=== PATIENT | female | born 1935 | race Caucasian/White ===

== ENCOUNTER 2022-01-09 13:52 | Outpatient (CLI) | payer MEDICARE, BC, SELFPAY | END 2022-01-09 13:53 | disposition home or self-care (01) | LOC: AMB 01-30 11:40 | PROVIDERS: PCP Family Medicine; Visit Provider Family Medicine | DX: N93.9 Abnormal uterine and vaginal bleeding, unspecified (principal) | CPT/HCPCS: A0425; A0427; A0428 ==

== ENCOUNTER 2022-01-09 14:31 | Emergency (ER) | payer MEDICARE, BC, SELFPAY ==
[2022-01-09] VITALS (8 sets, daily range): BP systolic 121–202; BP diastolic 62–93; PULSE 75–91; RESP 18–24; TEMP 36.5; O2SAT 94–98
--- NOTE | 2022-01-09 15:40 | CRLHL7_ITS ---
For Patients: As a result of the Century Cures Act, medical imaging exams and procedure reports are released immediately into your electronic medical record. You may view this report before your referring provider. If you have questions, please contact your health care provider. INDICATION: Bleeding. History of colon cancer. TECHNIQUE: CT abdomen and pelvis without contrast. COMPARISON: 10/26/2015. 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 Liver: Normal in size and attenuation. No suspicious masses. Gallbladder and bile ducts: No stones or inflammation. No biliary dilatation. Pancreas: Unremarkable. No mass or inflammation. Spleen: Normal in size. No masses. Adrenal glands: Normal in size. No nodules. Kidneys: Normal in size. No suspicious masses, stones, or hydronephrosis. GI tract: Unremarkable. Normal in caliber. No sign of mass or inflammation. Vasculature: Diffuse aortic atherosclerosis without aneurysm. Lymph nodes: No lymphadenopathy. Peritoneum/Abdominal Wall: Unremarkable. No sign of mass or infiltration. No free air or significant free fluid. Pelvic organs: Unremarkable. No pelvic masses. Bones: Unremarkable for age. No suspicious bone lesion. IMPRESSION: No changes from the prior exam. GI tract appears unremarkable. No acute or specific finding to explain bleeding. Please note that all CT scans at this facility use dose modulation, iterative reconstruction, and/or weight-based dosing when appropriate to reduce radiation dose to as low as reasonably achievable. Dictated by Farhan Dejesus MD @ 01/09/2022 5:32:25 PM (Electronically Signed)
--- NOTE | 2022-01-09 15:43 | ED_ITS ---
HPI - General Adult General Time Seen by Provider: 15:43 Date Seen: 01/09/22 Chief complaint: Unspecified Complaint, Adult Stated complaint: Low hemoglobin Time Seen by Provider: 01/09/22 14:47 Source: patient, family (Daughter Silvana here, spoke with Ros on phone), EMS and RN notes reviewed Mode of arrival: EMS Limitations: altered mental status (Patient has dementia) History of Present Illness HPI narrative: This 86-year-old female is brought in today at request of her daughters. She resides at the [facility]. She has underlying dementia. She has been having increased aggression and confusion, sleeping more and seeming more dazed. For a while now she has had some vaginal bleeding but has gotten heavier with bleeding and clots. The given prior her options of further testing but daughters note that whenever she has taken out of the [facility] it is quite stressful for her. They noted that her bleeding and picked up and was increasingly agitated, supposedly a medical provider was out to see here today in her hip hemoglobin came back critically low, I believe it was reported to be 6.9 per EMS. They were given the option of holding her aspirin and see what happens over few days or having her brought in for blood transfusion. I discussed with both daughters that if she is going to have ongoing active bleeding then a blood transfusion unfortunately is only a temporizing option. Unfortunately taking a blood transfusion as a temporizing option is using a critical Resource. I am certainly not seen that she should not have 1 but I t hink we need to think this through carefully. The believe she has had a hysterectomy in maybe a tubal ligation but they are unsure. They do know she has had a history of colon cancer that was 15-20 years ago that was caught reportedly early. Patient is unable to give us any of her history. When asked her if she has any pain anywhere she laughs and states everywhere but when asked again she states she is not hurting. Review of Systems Status of ROS: Reports: unobtainable due to mental status (Has advanced ankush ia) Exam Const: Vital Signs, click to edit/add: Vital Signs - 24 hr 01/09/22 14:47 Temperature 97.7 F Pulse Rate [Right Pulse Oximeter] 75 Respiratory Rate 18 Blood Pressure [Ri ght Upper Arm] 149/62 H Pulse Oximetry 94 Documenting provider has reviewed patient's vital signs: yes Common normals: no apparent distress, no limitations, alert and well nourished General appearance: cooperative and comfortable HENMT: Common normals: normocephalic, head/scalp atraumatic and hearing grossly normal bilaterally Head and scalp: normocephalic and atraumatic Eye: Common normals: PERRL, EOMs intact bilaterally, conjunctivae normal and no scleral icterus Conjunctiva: conjunctiva(e) normal Pupil: PERRL Neck & C-Spine: Common normals: full ROM, no lymphadenopathy, supple, no meningeal signs, no JVD and thyroid normal Thyroid: thyroid normal Chest: Common normals: inspection of chest normal Resp: Common normals: normal respiratory effort, no retractions, no use of accessory muscles and clear to auscultation bilaterally Auscultation: clear to auscultation bilaterally Cardio: Common normals: no JVD, regular rate, regular rhythm, S1 normal heart sound, S2 normal heart sound, no gallops, no clicks and no murmurs Rate: regular rate Rhythm: regular rhythm Heart sounds: S1 normal and S2 normal GI: Common normals: Normal to inspection, nondistended, normoactive bowel sounds present, soft to palpation, non-tender, no hepatosplenomegaly and no masses Palpation: soft and no hepatosplenomegaly : Other: Unfortunately at this time, patient is in the hallway and I cannot examine her perineum. We have high-volume, high acuity and do not have a room to place this patient as of yet Neuro: Sensorium/orientation: alert Meningeal signs: no meningeal signs Course Course Hospital Course: Have had a nice discussion with the daughters, will proceed with plain noncontrast imaging of her CT and pelvis to see if we can define exactly what is happening intra-abdominally or in the pelvic area to cause bleeding. We do not even know if she has had a hysterectomy, confounding the picture here. I cannot evaluate this patient in the hallway in will need to await her to have a room for further visualization of her perineum. We will do blood work, do a type and screen just to see if she has any antibodies. Daughters and I at this point are holding off on transfusion and will discuss this further once we have the imaging and lab results back. Reevaluation(s) Reevaluation #1: Patient was finally moved into a room. Did look at her perineum. I see no evidence of any bleeding, introitus the vagina is dry. She is not tolerating much as far as examination. I did not do a bimanual examination given her dementia. No evidence of any bleeding from the rectal area. Urethra looks dry. Have reviewed this with her daughter and we will await the imaging and lab results. Her hemoglobin here is 7.1. Will make further decisions based on other pending test. Time: 17:23 Reevaluation #2: Have spoken with Ros and Silvana regarding the normal CT, no evidence to support a definitive pathology. We have not decipher where she is bleeding from here, we had a difficult time getting her to urinate but she finally did go on a bed side commode. There was some mucousy blood tinged material within the urine but still could not decipher if this was vaginal, my presumption it probably was. The daughter seem to be quite positive that the nursing staff really feels like it is coming vaginally. The understand the difficulty with trying to get a pelvic exam on her. I could barely look at her perineum. They feel that that would not be necessary. Unfortunately there has been discrepancy in her blood typing here and will have to be sent to [place]. Thus we would not have any blood ready for her until tomorrow. Daughters wondered if she could just stay overnight but reviewed with them that she really is stable and we would not be doing anything. That makes hospitalization not paid for by Medicare. They understand. We had a long discussion regarding this. They feel that her mom's quality of life is minimal and that she wanted comfort cares only. If they are observing her wishes, then I think transfusing her really is to no benefit. It might give her a little stabilization in a bit more time but eventually she will likely bleed back down again. They are not interested in further evaluation of her bleeding at this time nor transfusion. They do need to check with their brother though to make sure he is in support of this. I discussed initiating hospice which they would like to do. They will get back to me once they have contacted their brother. Time: 18:52 Vital Signs Vital signs: Initial Vital Signs Temperature 97.7 F 01/09/22 14:47 Temperature Source Temporal Artery Scan 01/09/22 14:47 Pulse Rate 75 01/09/22 14:47 Respiratory Rate 18 01/09/22 14:47 Blood Pressure 149/62 H 01/09/22 14:47 Blood Pressure Mean 91 01/09/22 14:47 Blood Pressure Position Sitting 01/09/22 14:47 Pulse Oximetry 94 01/09/22 14:47 Oxygen Delivery Method 01/09/22 14:47 Vital Signs Temperature 97.7 F 01/09/22 14:47 Pulse Rate 75 01/09/22 14:47 Respiratory Rate 18 01/09/22 14:47 Blood Pressure 149/62 H 01/09/22 14:47 Pulse Oximetry 94 01/09/22 14:47 Temperature 97.7 F 01/09/22 14:47 Pulse Rate 75 01/09/22 14:47 Respiratory Rate 18 01/09/22 14:47 Blood Pressure 149/62 H 01/09/22 14:47 Pulse Oximetry 94 01/09/22 14:47 Medical Decision Making Lab Data Labs: Lab Results 01/09/22 01/09/22 Range/Units 01:09 16:05 WBC 9.62 (4.50-11.00) K/uL RBC 3.24 L (4.00-5.20) m/uL Hgb 7.1 L* (12.0-16.0) gm/dL Hct 24.8 L (33.0-51.0) % MCV 77 L (80-100) fL MCH 22 L (26-34) pg MCHC 29 L (32-36) gm/dL RDW Coeff of Pat 17.7 H (11.5-15.5) % Plt Count 309 (140-440) K/uL Neut % (Auto) 61.0 (42.0-72.0) % Lymph % (Auto) 21.8 (20-44) % [place] % (Auto) 11.7 H (0.0-11.0) % Eos % (Auto) 5.1 (0.0-7.0) % Baso % (Auto) 0.2 (0.0-3.0) % Neut # (Auto) 5.86 (1.7-7.0) K/uL Lymph # (Auto) 2.10 (0.90-2.90) K/uL [place] # (Auto) 1.10 H (0.00-0.90) K/UL Eos # (Auto) 0.49 (0.00-0.50) K/uL Baso # (Auto) 0.02 (0.00-0.30) K/uL Abs Immat Gran (auto) 0.02 (0.00-0.30) K/uL Sodium 134 L (135-149) mmol/L Potassium 4.3 (3.6-5.1) mmol/L Chloride 101 (96-114) mmol/L Carbon Dioxide 26 (20-32) mmol/L BUN 13 (7-30) mg/dL Creatinine 0.8 (0.5-1.5) mg/dL Estimated GFR 72 ml/min Glucose 106 (60-115) mg/dL Calcium 8.6 (8.4-10.6) mg/dL Total Bilirubin 0.4 (0.1-1.5) mg/dL AST 31 (12-35) U/L ALT 12 (4-35) U/L Alkaline Phosphatase 104 (40-150) U/L Total Protein 6.2 (6.0-8.3) g/dL Albumin 3.8 (3.3-5.0) g/dL Imaging Data CT Chest/Ab/Pelvis: Attestation: I have reviewed the pertinent imaging results. Radiologist's impression: Patient: KIET PALMER Facility:?[facility] Patient ID:?[id number] Site Patient ID:?[id number]. Site :?[id number] Study:?CT Abdomen/Pelvis w/o Contrast-01/09/2022 4:54:18 PM Ordering Physician:Mikye Chao Final Report: INDICATION: Bleeding. History of colon cancer. TECHNIQUE: CT abdomen and pelvis without contrast. COMPARISON: 10/26/2015. 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 Liver: Normal in size and attenuation. No suspicious masses. Gallbladder and bile ducts: No stones or inflammation. No biliary dilatation. Pancreas: Unremarkable. No mass or inflammation. Spleen: Normal in size. No masses. Adrenal glands: Normal in size. No nodules. Kidneys: Normal in size. No suspicious masses, stones, or hydronephrosis. GI tract: Unremarkable. Normal in caliber. No sign of mass or inflammation. Vasculature: Diffuse aortic atherosclerosis without aneurysm. Lymph nodes: No lymphadenopathy. Peritoneum/Abdominal Wall: Unremarkable. No sign of mass or infiltration. No free air or significant free fluid. Pelvic organs: Unremarkable. No pelvic masses. Bones: Unremarkable for age. No suspicious bone lesion. IMPRESSION: No changes from the prior exam. GI tract appears unremarkable. No acute or specific finding to explain bleeding. Please note that all CT scans at this facility use dose modulation, iterative reconstruction, and/or weight-based dosing when appropriate to reduce radiation dose to as low as reasonably achievable. Dictated by Farhan Dejesus MD @ 01/09/2022 5:32:25 PM (Electronic Signature) Critical Care Time Critical Care Time Critical Care Time: No Discharge Plan Discharge Clinical Impression: Anemia, Dementia, Bleeding Patient Disposition: Home w/ Parent or Adult Condition: Unchanged Additional Instructions: Recommend initiation of hospice. Do not recommend transfusion of blood when it is not ultimately going to change her outcome. Transfusing blood may buy her a bit more time but as we have discussed is not going to change her dementia status. Work with the half-way to have hospice consult initiated, I have written an order. Activity Level: Activity as Tolerated Follow Up/Referrals: Jamie Ragland DO [Primary Care Provider] - Stand Alone Forms: [employer] Info Instructions
[2022-01-09 16:23] LABS: Basophils Absolute Auto 0.02 K/uL (0.00-0.30); Basophils Percent Auto 0.2 % (0.0-3.0); Eosinophils Absolute Auto 0.49 K/uL (0.00-0.50); Eosinophils Percent Auto 5.1 % (0.0-7.0); Hematocrit 24.8 % (33.0-51.0); Immature Granulocytes Abs Auto 0.02 K/uL (0.00-0.30); Lymphocytes Percent Auto 21.8 % (20-44); Mean Corpuscular HGB Conc 29 gm/dL (32-36); Mean Corpuscular Hemoglobin 22 pg (26-34); Mean Corpuscular Volume 77 fL (80-100); Monocytes Percent Auto 11.7 % (0.0-11.0); Neutrophils Absolute Auto 5.86 K/uL (1.7-7.0); Platelet Count* 309 K/uL (140-440); RDW Coefficient of Variation % 17.7 % (11.5-15.5); Red Blood Count 3.24 m/uL (4.00-5.20); White Blood Count* 9.62 K/uL (4.50-11.00)
[2022-01-09 16:26] LABS: Hemoglobin* 7.1 gm/dL (12.0-16.0); Slide Review Reflex No
[2022-01-09 16:45] LABS: Albumin* 3.8 g/dL (3.3-5.0); Chloride* 101 mmol/L (96-114); Potassium* 4.3 mmol/L (3.6-5.1); Sodium* 134 mmol/L (135-149)
[2022-01-09 16:47] LABS: Creatinine* 0.8 mg/dL (0.5-1.5); Estimated Glomerular Filt Rate 72 ml/min
[2022-01-09 16:48] LABS: Alanine Aminotransferase* 12 U/L (4-35); Alkaline Phosphatase* 104 U/L (40-150); Aspartate Amino Transferase* 31 U/L (12-35); Bilirubin Total* 0.4 mg/dL (0.1-1.5); Blood Urea Nitrogen* 13 mg/dL (7-30); Calcium* 8.6 mg/dL (8.4-10.6); Carbon Dioxide* 26 mmol/L (20-32); Glucose* 106 mg/dL (60-115); Total Protein* 6.2 g/dL (6.0-8.3)
--- NOTE | 2022-01-09 19:00 | ED.NURSE ---
Patient becoming more restless. Patient assisted to cot via heavy two-assist with use of gait belt, non-slip shoes. Staff having to completely lift patient from cot to commode and back. 150CC cloudy, straw colored urine with some floating red discharge. MD aware, possible contamination from vaginal bleeding.
--- NOTE | 2022-01-09 19:15 | ED.NURSE ---
[facility], aware of patient's visit and recommendations. No questions/concerns. Would like a call when patient is en route back to facility.
[2022-01-09] MEDS: QUETIAPINE 25 MG TABLET PO (19:36)
--- NOTE | 2022-01-09 20:06 | ED.NURSE ---
[facility] aware patient is en route back of facility.
--- NOTE | 2022-01-31 23:49 | ED.NURSE ---
accessed chart for [facility] form information.
== END 2022-01-09 20:00 | disposition home or self-care (01) ==
PROVIDERS: Emergency Provider Family Medicine; PCP Family Medicine
DX: D64.9 Anemia, unspecified (principal); F03.90 Unspecified dementia, unspecified severity, without behavioral disturbance, psychotic disturbance, mood disturbance, and anxiety; N93.9 Abnormal uterine and vaginal bleeding, unspecified
CPT/HCPCS: 36415; 74176; 80053; 85025; 86850; 86900; 86901; 99284; A9270

== ENCOUNTER 2022-01-09 20:01 | Outpatient (CLI) | payer MEDICARE, BC, SELFPAY | END 2022-01-09 20:02 | disposition home or self-care (01) | LOC: AMB 01-30 14:45 | PROVIDERS: PCP Family Medicine; Visit Provider Emergency Medicine | DX: F03.90 Unspecified dementia, unspecified severity, without behavioral disturbance, psychotic disturbance, mood disturbance, and anxiety (principal) | CPT/HCPCS: A0425; A0428 ==

== ENCOUNTER 2022-02-10 21:31 | Emergency (ER) | payer MEDICARE, BC, SELFPAY ==
[2022-02-10 21:35] VITALS: BP 142/70; PULSE 73; RESP 24; TEMP 36.4; O2SAT 96
--- NOTE | 2022-02-10 22:17 | CRLHL7_ITS ---
For Patients: As a result of the Century Cures Act, medical imaging exams and procedure reports are released immediately into your electronic medical record. You may view this report before your referring provider. If you have questions, please contact your health care provider. INDICATION: Unwitnessed fall. COMPARISON: CT of the head from 10/11/2017 TECHNIQUE: CT examination of the head was performed with 3 mm thick axial and 2 mm thick coronal and sagittal sections without intravenous contrast. Images were obtained from the vertex of the skull through the skull base, and I examined the images with the brain and bone windows. Please note that all CT scans at this facility use dose modulation, iterative reconstruction, and/or weight-based dosing when appropriate to reduce radiation dose to as low as reasonably achievable. FINDINGS: There is new moderate left frontal scalp swelling with no sign of fracture of the underlying calvarium or injury to the underlying brain. There is no change in prominent encephalomalacia of the inferior right frontal lobe and mild encephalomalacia of the inferior aspect of the posterior left frontal lobe, findings consistent with old contusions. Again seen is focal encephalomalacia of the posterior medial left occipital lobe associated with moderate ex vacuo dilatation of the left occipital horn. 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 There is no change in prominent dilatation of the ventricles and sulci representing prominent, age-appropriate atrophy. There is no change in mild periventricular hypodensity representing mild, age-appropriate small-vessel ischemic change. There is stable appearance of a small, old lacunar infarct in the anterior right external capsule and hypodensity in the posterior limb of the right internal capsule from additional lacunar infarction. There is no sign of mass lesion, mass effect, hemorrhage, or edema. The visualized portions of the orbits are normal in appearance with stable changes of cataract surgery. The visualized paranasal sinuses and mastoids are clear. The osseous structures are normal in their appearance with no sign of abnormality in the skull base or calvarium. IMPRESSION: New moderate left frontal scalp swelling. No sign of fracture of the underlying calvarium or injury to the underlying brain. No sign of closed head injury. No sign of acute injury to the brain. Stable old large right and small left inferior frontal contusions. 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 Stable severe atrophy and mild small vessel ischemic change consistent with the patient`s age. Please note that all CT scans at this facility use dose modulation, iterative reconstruction, and/or weight-based dosing when appropriate to reduce radiation dose to as low as reasonably achievable. Dictated by Woody Jefferson MD @ 02/10/2022 11:21:56 PM (Electronically Signed)
--- NOTE | 2022-02-10 22:17 | CRLHL7_ITS ---
For Patients: As a result of the Century Cures Act, medical imaging exams and procedure reports are released immediately into your electronic medical record. You may view this report before your referring provider. If you have questions, please contact your health care provider. INDICATION: Unwitnessed fall. COMPARISON: CT of the cervical spine from 11/30/2016 TECHNIQUE: CT examination of the cervical spine is performed without contrast using spiral technique. 1.5 mm thick axial, sagittal and coronal reconstructions were made. Please note that all CT scans at this facility use dose modulation, iterative reconstruction, and/or weight-based dosing when appropriate to reduce radiation dose to as low as reasonably achievable. FINDINGS: : There is no change in minimal anterior subluxation of C3 on C4 and of C4 on C5 which are probably degenerative, associated with moderate bilateral facet arthropathy. The discs at these levels are normal in height. Again seen is minimal anterior subluxation of C7 on T1 which is probably also degenerative, associated with mild left facet arthropathy. The C7-T1 disc is normal in height. There is no sign of fracture of the cervical vertebral bodies or posterior elements. There is no sign of prevertebral soft tissue swelling. There is prominent C6-7 and C7-T1 disc degenerative disease, unchanged from the previous study. Again seen is mild diffuse disc bulging and posterior osteophytic ridging at see 5 6 more prominent laterally towards the right. Again seen is mild diffuse disc bulging and posterior osteophytic ridging at C6-7. There continues to be severe right greater than left C5-6 foraminal stenosis from uncovertebral joint hypertrophy. There is no change in moderate C6-7 foraminal stenosis from uncovertebral joint hypertrophy. 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 The airway structures are normal in appearance. Again seen is prominent bilateral carotid bifurcation calcification. The visualized skull base is normal in appearance. The visualized inferior brain is normal in appearance for the patient`s age. The apices of the lungs are clear. IMPRESSION: No sign of acute osseous injury to the cervical spine. Stable degenerative changes as described above, with stable severe C5-6 and C6-7 disc degenerative disease. Please note that all CT scans at this facility use dose modulation, iterative reconstruction, and/or weight-based dosing when appropriate to reduce radiation dose to as low as reasonably achievable. Dictated by Woody Jefferson MD @ 02/10/2022 11:27:47 PM (Electronically Signed)
--- NOTE | 2022-02-10 22:27 | ED.FALL ---
HPI - Fall General Chief Complaint: Fall/Minor Trauma Stated Complaint: FALL Time Seen by Provider: 02/10/22 21:36 History of Present Illness HPI Narrative: 86-year-old woman resident of [facility] presents to the emergency department after a fall and residence. The notable loss of consciousness. As a clear injury to the left brow area. Is not anticoagulated. Dense dementia. She has been resting quietly prior to my evaluating. Difficult to assess. Allows for transition does not appear to be in any particular pain. My understanding is that this was a trip and fall event of some sort. Related Data Home Medications Medication Instructions Recorded Confirmed acetaminophen 500 mg capsule 500 mg PO Q6H PRN 01/09/22 02/10/22 aspirin 81 mg capsule 81 mg PO DAILY 01/09/22 02/10/22 calcium carbonate 600 mg-vitamin cap PO DAILY 01/09/22 D3 10 mcg (400 unit) capsule centrum adults 1 tab PO DAILY 01/09/22 02/10/22 dorzolamide 22.3 mg-timolol 6.8 1 drp ophthalmic (eye) Q12H 01/09/22 02/10/22 mg/mL eye drops furosemide 20 mg tablet 20 mg PO DAILY 01/09/22 02/10/22 lamotrigine 100 mg tablet 100 mg PO BID 01/09/22 02/10/22 latanoprost 0.005 % eye drops 1 drp ophthalmic (eye) QPM 01/09/22 02/10/22 lisinopril 20 mg tablet 20 mg PO DAILY 01/09/22 02/10/22 metoprolol tartrate 50 mg tablet 75 mg PO BID 01/09/22 02/10/22 nystatin 100,000 unit/gram topical 1 applic topical BID 01/09/22 01/09/22 powder (Nystop) potassium chloride 10 mEq 10 meq PO DAILY 01/09/22 01/09/22 tablet,extended release (Klor-Con) pravastatin 20 mg tablet 20 mg PO DAILY 01/09/22 02/10/22 quetiapine 25 mg tablet 25 mg PO DAILY 01/09/22 02/10/22 sertraline 100 mg tablet 100 mg PO Q24H 01/09/22 02/10/22 Allergies Allergy/AdvReac Type Severity Reaction Status Date / Time citalopram Allergy Unknown Verified 02/10/22 21:42 duloxetine Allergy Unknown Verified 02/10/22 21:42 Review of Systems Status of ROS: Reports: unobtainable due to mental status PFSH PFS Social History Smoking Status: Never smoker Second hand tobacco smoke exposure: No How often do you have a drink containing alcohol: never How often do you have six or more drinks on one occasion: Never AUDIT-C Alcohol total score: 0 Non-prescribed substance use: denies use service: No Exam Narrative: Exam Narrative: nad. flat facies. cooperates with exam. breathing easily. gcs 14 cn 2 - 12 appear to be intact. clearly with dementia. moving all extremities without difficulty. well perfused. Head -- there is a 1-1/4 laceration above the left brow that oozes blood easily. Chip to the left front upper incisor does not appear to be new otherwise dentition appears to be intact. No blood at the gumline ears are clear of fluid. no tamayo sign. neck supple. appears to be nt. lungs clear. no pain to palp of the back. abd protuberant and nt no pain to palp of extremities. Const: Vital Signs, click to edit/add: Vital Signs - 24 hr 02/10/22 21:35 Temperature 97.6 F Pulse Rate [Right Pulse Oximeter] 73 Respiratory Rate 24 Blood Pressure [Ri ght Upper Arm] 142/70 H Pulse Oximetry 96 Oxygen Delivery Me thod Room Air Documenting provider has reviewed patient's vital signs: yes Course Course Hospital Course: monitored without event Vital Signs Vital signs: Initial Vital Signs Temperature 97.6 F 02/10/22 21:35 Temperature Source Temporal Artery Scan 02/10/22 21:35 Pulse Rate 73 02/10/22 21:35 Pulse Rhythm 02/10/22 21:35 Respiratory Rate 24 02/10/22 21:35 Blood Pressure 142/70 H 02/10/22 21:35 Blood Pressure Mean 94 02/10/22 21:35 Blood Pressure Position Supine 02/10/22 21:35 Pulse Oximetry 96 02/10/22 21:35 Oxygen Delivery Method 02/10/22 21:35 Vital Signs Temperature 97.6 F 02/10/22 21:35 Pulse Rate 73 02/10/22 21:35 Respiratory Rate 24 02/10/22 21:35 Blood Pressure 142/70 H 02/10/22 21:35 Pulse Oximetry 96 02/10/22 21:35 Oxygen Delivery Method 02/10/22 21:35 Temperature 97.6 F 02/10/22 21:35 Pulse Rate 88 02/11/22 00:11 Respiratory Rate 18 02/11/22 00:11 Blood Pressure 147/79 H 02/11/22 00:11 Pulse Oximetry 94 02/11/22 00:11 Oxygen Delivery Method 02/11/22 00:11 MDM - Fall MDM Narrative Medical decision making narrative: I personally reviewed images. head ct and cervical spine ct without acute abnormality beyond left brow soft tissue swelling. Medical Records Attestation: I reviewed the patient's medical records. Discharge Plan Discharge Clinical Impression: Laceration of brow without complication, Closed head injury Patient Disposition: Home w/ Parent or Adult Condition: Improved Additional Instructions: Can clean up initially as needed. Sutures out in?6-7 days. Ok to get wet but avoid soaking while sutures are in. Antibiotic ointment for 3-4 days and then to a dry bandage. Report spreading redness after 2 days, marked increase in pain, purulent drainage, fever. for scar reduction/wound healing if desired -- after scab falls, can apply daily vitamin e oil, emu oil or silicone-containing ointments or bandages.? in particular, protect from the sun for the first 9 - 12 months. Be re-evaluated for marked increase in pain, unusual somnolence, repeated vomiting. Prescriptions: No Action dorzolamide-timolol 22.3-6.8 mg/mL drops 1 drp OPHTHALMIC (EYE) Q12H furosemide 20 mg tablet 20 mg PO DAILY Label Comments: TAKE ONE TABLET BY MOUTH EVERY DAY potassium chloride [Klor-Con 10] 10 mEq tablet extended release 10 meq PO DAILY lamotrigine 100 mg tablet 100 mg PO BID Label Comments: TAKE ONE TABLET BY MOUTH TWICE A DAY lisinopril 20 mg tablet 20 mg PO DAILY Label Comments: TAKE ONE TABLET BY MOUTH EVERY DAY metoprolol tartrate 50 mg tablet 75 mg PO BID Label Comments: TAKE ONE AND ONE-HALF TABLETS BY MOUTH TWICE A DAY sertraline 100 mg tablet 100 mg PO Q24H Label Comments: TAKE ONE TABLET BY MOUTH EVERY DAY quetiapine 25 mg tablet 25 mg PO DAILY Label Comments: TAKE 1/2 TABLET BY MOUTH ONCE A DAY AND 1 TABLET EVERY AFTERNOON AND MAY TAKE 1/2 TABLET EVERY 6 HOURS NEEDED FOR AGITATION. calcium carbonate-vitamin D3 600 mg-10 mcg (400 unit) capsule PO DAILY centrum adults 1 tab PO DAILY aspirin 81 mg capsule 81 mg PO DAILY latanoprost 0.005 % drops 1 drp ophthalmic (eye) QPM pravastatin 20 mg tablet 20 mg PO DAILY Label Comments: TAKE ONE TABLET BY MOUTH AT BEDTIME acetaminophen 500 mg capsule 500 mg PO Q6H PRN nystatin [Nystop] 100,000 unit/gram powder 1 applic topical BID Follow Up/Referrals: Jamie Ragland DO [Primary Care Provider] - Stand Alone Forms: [facility] Info Instructions Procedures Additional Procedures Procedure name: laceration repair Pre procedure diagnosis: closed head injury and brow laceraton Post procedure diagnosis: closed head injury and brow laceration Written consent by: guardian and health care proxy Site marking: not applicable Verification/time out: correct patient Estimated blood loss (if any): other (specify) (less than 2 mls) Conclusion: patient tolerated procedure Additional comments: injected wound with lidocaine with epi. interrupted sutures placed with 5-0 ethilon excellent wound approximation achieved and control of bleeding
[2022-02-11 00:11] VITALS: BP 147/79; PULSE 88; RESP 18; O2SAT 94
== END 2022-02-11 02:06 | disposition home or self-care (01) ==
PROVIDERS: Emergency Provider Family Medicine; PCP Family Medicine
DX: S01.112A Laceration without foreign body of left eyelid and periocular area, initial encounter (principal); W01.0XXA Fall on same level from slipping, tripping and stumbling without subsequent striking against object, initial encounter
CPT/HCPCS: 12013; 70450; 72125; 99283

== ENCOUNTER 2022-02-11 01:56 | Outpatient (CLI) | payer MEDICARE, BC, SELFPAY | END 2022-02-11 01:57 | disposition home or self-care (01) | LOC: AMB 02-13 05:36 | PROVIDERS: PCP Family Medicine; Visit Provider Family Medicine | DX: F03.90 Unspecified dementia, unspecified severity, without behavioral disturbance, psychotic disturbance, mood disturbance, and anxiety (principal) | CPT/HCPCS: A0425; A0428 ==